=== PATIENT | female | born 1970 | race Caucasian/White ===

== ENCOUNTER 2017-02-20 05:53 | Emergency (ER) | payer BC ==
[2017-02-20 05:59] VITALS: BP 121/74
[2017-02-20] MEDS ORDERED: Ketorolac 30 MG/ML SDV IVPUSH ONE (06:24)
[2017-02-20] MEDS ORDERED: Cyclobenzaprine 10 MG Tab PO ONE (06:24)
[2017-02-20] MEDS ORDERED: Metoclopramide 10 MG/2 ML SDV IVPUSH ONE (06:27)
--- NOTE | 2017-02-20 06:43 | EDM.PDOC ---
ED HPI GENERAL MEDICAL PROBLEM - General Chief Complaint: Lower Extremity Injury/Pain Stated Complaint: HURT GROIN MUSCLE Time Seen by Provider: 02/20/17 06:00 Source of Information: Reports: Patient History Limitations: Reports: No Limitations - History of Present Illness INITIAL COMMENTS - FREE TEXT/NARRATIVE: Original documentation for this record lost with [email or web address] malfunction. Patient presented with c/o of severe right groin pain worsening since . denies any specific injury. Noted Thursday was moving frozen meat from palettes to freezer. Also hx of venous surgery due to phlebitis and malfunctioning valve in right groin. Pain worse with extension of leg and forward step. Denies swelling to leg, no numbness or tingling. Previous smoker, quit in 2009 Right Upper Leg Pain Score (Numeric/FACES): 10 - Related Data Allergies Allergy/AdvReac Type Severity Reaction Status Date / Time bupropion [From Wellbutrin] Allergy Hallucinati Verified 02/20/17 05:57 ons Home Meds: Home Meds Venlafaxine HCl [Venlafaxine ER] 300 mg PO DAILY 09/05/14 [History] Lisdexamfetamine [Vyvanse] 40 mg PO DAILY 09/24/16 [History] QUEtiapine [SEROquel] 25 mg PO DAILY 09/24/16 [History] Past Medical History - Past Health History Medical/Surgical History: Denies Medical/Surgical History HEENT History: Reports: None Cardiovascular History: Reports: None Respiratory History: Reports: None Gastrointestinal History: Reports: Other (See Below) Other Gastrointestinal History: rectal bleed Genitourinary History: Reports: None DATABASE SUPPORT History: Reports: None Musculoskeletal History: Reports: None Neurological History: Reports: None Psychiatric History: Reports: Depression Endocrine/Metabolic History: Reports: None Hematologic History: Reports: None Immunologic History: Reports: None Oncologic (Cancer) History: Reports: None Dermatologic History: Reports: None - Infectious Disease History Infectious Disease History: Reports: Chicken Pox - Past Surgical History Cardiovascular Surgical History: Reports: Other (See Below) Other Cardiovascular Surgeries/Procedures: VARICOSE VEIN SURGERY - RIGHT LEG Female Surgical History: Reports: Tubal Ligation Social & Family History - Tobacco Use Smoking Status *Q: Former Smoker Years of Tobacco use: 22 Used Tobacco, but Quit: Yes Month Tobacco Last Used: 2009 Second Hand Smoke Exposure: No - Caffeine Use Caffeine Use: Reports: Coffee - Alcohol Use Days Per Week of Alcohol Use: 0 - Recreational Drug Use Recreational Drug Use: No - Living Situation & Occupation Living situation: Reports: with Significant Other Occupation: Unemployed Review of Systems - Review of Systems Review Of Systems: ROS reveals no pertinent complaints other than HPI. ED EXAM, GENERAL - Physical Exam Exam: See Below Exam Limited By: No Limitations General Appearance: Alert, Moderate Distress Eye Exam: Bilateral Eye: EOMI Ears: Normal External Exam Nose: Normal Inspection Throat/Mouth: Normal Inspection. No: Normal Teeth Head: Atraumatic, Normocephalic Neck: Normal Inspection Respiratory/Chest: No Respiratory Distress, Lungs Clear, Normal Breath Sounds Cardiovascular: Normal Peripheral Pulses, Regular Rate, Rhythm, No Edema Peripheral Pulses: 1+: Posterior Tibial (R), 2+: Posterior Tibial (L) Extremities: Kimberlyn's Sign, Limited Range of Motion (pain to right groin with inimal movment. Tender to palpation, No noted lymphadenopathy, pain extending to mid anterior and medial thigh with movment.). No: Increased Warmth, Mottled , Pallor Neurological: Alert, Oriented, Normal Cognition Psychiatric: Normal Affect Skin Exam: Warm, Dry, Intact, Normal Color Course - Vital Signs Last Recorded V/S: Last Vital Signs Temp 98.5 F 02/20/17 05:58 Pulse 86 02/20/17 05:58 Resp 16 02/20/17 05:58 BP 121/74 02/20/17 05:58 Pulse Ox 100 02/20/17 05:58 - Orders/Labs/Meds Labs: Laboratory Tests 02/20/17 02/20/17 02/20/17 Range/Units 06:28 06:28 06:28 WBC 7.8 (5.0-10.0) 10^3/uL RBC 4.22 (4.2-5.4) 10^6/uL Hgb 11.4 L (12.0-16.0) g/dL Hct 36.4 L (37.0-47.0) % MCV 86.3 (80-100) fL MCH 27.0 (27.0-34.0) pg MCHC 31.3 L (33.0-35.0) g/dL Plt Count 254 (150-450) 10^3/uL Neut % (Auto) 76.3 H (42.2-75.2) % Lymph % (Auto) 11.7 L (20.5-50.1) % [place] % (Auto) 10.7 H (2-8) % Eos % (Auto) 1.0 (1.0-3.0) % Baso % (Auto) 0.3 (0.0-1.0) % D-Dimer, Quantitative < 100 (0-400) ng/mL Sodium 138 (135-145) mmol/L Potassium 4.4 (3.6-5.0) mmol/L Chloride 104 (101-111) mmol/L Carbon Dioxide 25.0 (21.0-31.0) mmol/L Anion Gap 13.4 BUN 21 H (7-18) mg/dL Creatinine 0.5 L (0.6-1.3) mg/dL Est Cr Clr Drug Dosing 136.31 mL/min Estimated GFR (MDRD) > 60 BUN/Creatinine Ratio 42.00 Glucose 81 (74-105) mg/dL Calcium 8.7 (8.4-10.2) mg/dl Total Bilirubin 0.5 (0.2-1.0) mg/dL AST 29 (10-42) IU/L ALT 20 (10-60) IU/L Alkaline Phosphatase 80 (42-121) IU/L Total Protein 6.9 (6.7-8.2) g/dl Albumin 3.6 (3.2-5.5) g/dl Globulin 3.3 Albumin/Globulin Ratio 1.09 Meds: Medications Discontinued Medications Generic Name Dose Route Start Last Admin Trade Name Freq PRN Reason Stop Dose Admin Cyclobenzaprine HCl 5 mg 02/20/17 06:24 02/20/17 06:38 Flexeril PO 02/20/17 06:25 5 mg ONETIME ONE Administration Ketorolac Tromethamine 30 mg 02/20/17 06:24 02/20/17 06:39 Toradol IVPUSH 02/20/17 06:25 30 mg ONETIME ONE Administration Metoclopramide HCl 10 mg 02/20/17 06:27 02/20/17 06:39 Reglan IVPUSH 02/20/17 06:28 10 mg ONETIME ONE Administration Departure - Departure Time of Disposition: 07:05 Disposition: Home, Self-Care 01 Condition: Undetermined Clinical Impression: Pulled muscle - Discharge Information Instructions: Muscle Strain, [id number] Forms: ED Department Discharge Additional Instructions: ibuprofen 600mg one every 6 hours as needed for pain #20 flexeril 10mg one half to one tablet every 8 hours as needed for muscle alternate ice and heat to area rest off work- through 02/23 clinic follow up on Thursday
[2017-02-20 07:02] LABS: CHLORIDE,CL 104 mmol/L (101-111); SODIUM,NA 138 mmol/L (135-145)
== END 2017-02-20 07:23 | disposition home or self-care (01) ==
LOC: DL.ED 05:53
DX: R10.31 Right lower quadrant pain (principal); M62.89 Other specified disorders of muscle; F32.9 Major depressive disorder, single episode, unspecified; Z98.51 Tubal ligation status; Z87.891 Personal history of nicotine dependence; Z79.899 Other long term (current) drug therapy; Z88.8 Allergy status to other drugs, medicaments and biological substances
CPT/HCPCS: 36415; 80053; 85025; 85379; 96372; 96374; 99283; A9270; J1885; J2765

== ENCOUNTER 2017-03-30 15:36 | Emergency (ER) | payer OTHER, BC ==
[2017-03-30 16:30] VITALS: BP 121/61
--- NOTE | 2017-03-30 17:02 | EDM.PDOC ---
ED HPI GENERAL MEDICAL PROBLEM - General Chief Complaint: Upper Extremity Injury/Pain Stated Complaint: POSSIBLE BROKEN FINGER, [id number] Time Seen by Provider: 03/30/17 16:55 Source of Information: Reports: Patient History Limitations: Reports: No Limitations - History of Present Illness INITIAL COMMENTS - FREE TEXT/NARRATIVE: This 46 yo female patient reports to the ED with pain in her right distal middle finger. The patient reports she injured her finger on Thursday (03/28/17) while [facility] The patient reports increased pain since the time of the incident. Onset Date: 03/28/17 Duration: Constant Location: Reports: Upper Extremity, Right (distal middle finger) Quality: Reports: Ache, Dull Severity: Moderate Improves with: Reports: None Worsens with: Reports: None Context: Reports: Trauma Associated Symptoms: Reports: No Other Symptoms Right 3-Middle finger Pain Score (Numeric/FACES): 8 - Related Data Allergies Allergy/AdvReac Type Severity Reaction Status Date / Time bupropion [From Wellbutrin] Allergy Hallucinati Verified 03/30/17 16:27 ons Home Meds: Home Meds Venlafaxine HCl [Venlafaxine ER] 300 mg PO DAILY 09/05/14 [History] Lisdexamfetamine [Vyvanse] 40 mg PO DAILY 09/24/16 [History] QUEtiapine [SEROquel] 25 mg PO DAILY PRN 09/24/16 [History] Past Medical History - Past Health History Medical/Surgical History: Denies Medical/Surgical History HEENT History: Reports: None Cardiovascular History: Reports: None Respiratory History: Reports: None Gastrointestinal History: Reports: Other (See Below) Other Gastrointestinal History: rectal bleed Genitourinary History: Reports: None 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 Musculoskeletal History: Reports: None Neurological History: Reports: None Psychiatric History: Reports: Depression Endocrine/Metabolic History: Reports: None Hematologic History: Reports: None Immunologic History: Reports: None Oncologic (Cancer) History: Reports: None Dermatologic History: Reports: None - Infectious Disease History Infectious Disease History: Reports: Chicken Pox - Past Surgical History Cardiovascular Surgical History: Reports: Other (See Below) Other Cardiovascular Surgeries/Procedures: VARICOSE VEIN SURGERY - RIGHT LEG Female Surgical History: Reports: Tubal Ligation Social & Family History - Family History Family Medical History: Noncontributory - Tobacco Use Smoking Status *Q: Former Smoker Years of Tobacco use: 22 Used Tobacco, but Quit: Yes Month Tobacco Last Used: 2009 Second Hand Smoke Exposure: No - Caffeine Use Caffeine Use: Reports: Coffee - Alcohol Use Days Per Week of Alcohol Use: 0 - Recreational Drug Use Recreational Drug Use: No - Living Situation & Occupation Living situation: Reports: with Significant Other Occupation: Unemployed Review of Systems - Review of Systems Review Of Systems: ROS reveals no pertinent complaints other than HPI. ED EXAM, GENERAL - Physical Exam Exam: See Below Exam Limited By: No Limitations General Appearance: Alert, WD/WN, Mild Distress Eye Exam: Bilateral Eye: EOMI, Normal Inspection, PERRL Ears: Normal External Exam, Normal Canal, Hearing Grossly Normal, Normal TMs Nose: Normal Inspection, Normal Mucosa, No Blood Throat/Mouth: Normal Inspection, Normal Lips, Normal Teeth, Normal Gums, Normal Oropharynx, Normal Voice, No Airway Compromise Head: Atraumatic, Normocephalic Neck: Normal Inspection, Supple, Non-Tender, Full Range of Motion Respiratory/Chest: No Respiratory Distress, Lungs Clear, Normal Breath Sounds, No Accessory Muscle Use, Chest Non-Tender Cardiovascular: Normal Peripheral Pulses, Regular Rate, Rhythm, No Edema, No Gallop, No JVD, No Murmur, No Rub GI/Abdominal: Normal Bowel Sounds, Soft, Non-Tender, No Organomegaly, No Distention, No Abnormal Bruit, No Mass (Female) Exam: Deferred Rectal (Female) Exam: Deferred Back Exam: Normal Inspection, Full Range of Motion, NT Extremities: No Pedal Edema, Normal Capillary Refill, Other (right distal finger tenderness and immobility) Neurological: Alert, Oriented, CN II-XII Intact, Normal Cognition, Normal Gait, Normal Reflexes Psychiatric: Normal Affect, Normal Mood Skin Exam: Warm, Dry, Intact, Normal Color, No Rash Lymphatic: No Adenopathy Course - Vital Signs Last Recorded V/S: Last Vital Signs Temp 36.8 C 03/30/17 16:29 Pulse 88 03/30/17 16:29 Resp 16 03/30/17 16:29 BP 121/61 03/30/17 16:29 Pulse Ox 100 03/30/17 16:29 Departure - Departure Time of Disposition: 17:06 Disposition: Home, Self-Care 01 Condition: Fair Clinical Impression: Contusion of right middle finger without damage to nail, initial encounter - Discharge Information Instructions: Hand Contusion, [id number] Forms: ED Department Discharge Care Plan Goals: The patient was advised of the examination and x-ray results during the visit. The patient was placed in a right distal middle finger splint. The patient was encouraged to continue to rest, ice and elevate the injury. The patient may take Tylenol or ibuprofen as directed for temporary symptom relief. If the patient has any additional symptoms or concerns, the patient should follow-up with her primary care facility or return to the emergency department.
--- NOTE | 2017-03-31 20:24 | PCM.SN ---
- Free Text/Narrative Note: Patient presented with [employer] work comp form to be filled out from DOS 02/20/17 with groin pain. Forms completed . See document.
== END 2017-03-30 17:18 | disposition home or self-care (01) ==
LOC: DL.ED 15:36
DX: S60.031A Contusion of right middle finger without damage to nail, initial encounter (principal); F32.9 Major depressive disorder, single episode, unspecified; Z98.51 Tubal ligation status; Z79.899 Other long term (current) drug therapy; Z88.8 Allergy status to other drugs, medicaments and biological substances; W23.1XXA Caught, crushed, jammed, or pinched between stationary objects, initial encounter
CPT/HCPCS: 73140-F7; 99284

== ENCOUNTER 2017-06-18 05:10 | Day surgery (SDC) | payer BC, OTHER ==
[~2017-06-18 05:10] MED LIST: Dextrose 5%-0.45% NaCl 1,000 ML IV SCH; Midazolam 1 MG/ML 2 ML SDV ONE; Sodium Chloride 0.9% 10 ML Syringe FLUSH PRN; fentaNYL 100 MCG/2 ML SDV ONE
[2017-06-18] MEDS ORDERED: fentaNYL 100 MCG/2 ML SDV IV ONE ×5 (05:11→06:40)
[2017-06-18] MEDS ORDERED: Midazolam 1 MG/ML 2 ML SDV IV ONE ×7 (05:11→06:36)
[2017-06-18] MEDS ORDERED: Dextrose 5%-0.45% NaCl 1,000 ML IV SCH (06:00)
[2017-06-18] MEDS ORDERED: Sodium Chloride 0.9% 10 ML Syringe FLUSH PRN (06:00)
[2017-06-18] MEDS ORDERED: Midazolam 1 MG/ML 2 ML SDV ONE (06:13)
[2017-06-18] MEDS ORDERED: fentaNYL 100 MCG/2 ML SDV ONE (06:13)
--- NOTE | 2017-06-18 08:02 | OR ---
DATE: 06/18/2017 PROCEDURES PERFORMED: Total colonoscopy, NBI, and multiple pinch biopsies. INSTRUMENT USED: CF-H180AL Olympus videocolonoscope. PREMEDICATIONS: Fentanyl 150 mcg intravenous and Versed 4 mg intravenous. Nasal O2 cannula. The procedure was done under pulse oximetry, BP recording, and phototypesetting equipment monitor. INDICATION: The patient with ulcerative proctitis. Colonoscopic examination is done for detection of any polypoid lesions and removal, assessment of proximal colon as to presence of colitis, endoscopic hemostasis therapy if needed. DESCRIPTION OF PROCEDURE: Initial rectal exam was unremarkable. Rigid anoscopy showed small internal hemorrhoids without bleeding from them. The colonoscope was passed with ease. Photographs were taken. NBI views were obtained of rectal mucosa showing contact bleeding, diffuse erythema, as well as ulcerations. The scope was passed with ease up to the ileocecal area. Photographs were taken of the normal-appearing cecum identified by appendiceal orifice and thin-lipped ileocecal folds. No bleeding was noted from any of the visualized areas at the commencement of the examination. No stricture. No vascular ectasia. No large isolated ulcerations seen. No polyp or tumor mass identified. Probing the proximal sides of folds and flexures, using adequate distention and clearing up the stool material, withdrawal of the scope was made. Multiple pinch biopsies were taken from the normal-appearing mucosa of the mid- transverse colon, mid-descending colon, and sigmoid. Tissues were also obtained from the rectal mucosa that was abnormal and sent for histopathology. No bleeding was noted from any of the visualized areas at the completion of examination. IMPRESSION: 1. Internal hemorrhoids. 2. Ulcerative proctitis. The patient tolerated the procedure well. [facility] /[id number] MTDD
[2017-06-18 10:24] VITALS: BP 102/65
== END 2017-06-18 08:54 | disposition home or self-care (01) ==
LOC: DL.ENDO 05:10
PROVIDERS: ATTEND Internal Medicine Gastroenterology
DX: K51.20 Ulcerative (chronic) proctitis without complications (principal); K64.8 Other hemorrhoids; F32.9 Major depressive disorder, single episode, unspecified; Z98.51 Tubal ligation status; Z88.8 Allergy status to other drugs, medicaments and biological substances; Z98.890 Other specified postprocedural states
CPT/HCPCS: 45380; J2250; J3010; J7042

== ENCOUNTER 2017-09-05 10:45 | Emergency (ER) | payer BC ==
[2017-09-05 12:41] VITALS: BP 103/41
[2017-09-05 14:07] LABS: ANION GAP 11.5; CHLORIDE,CL 102 mmol/L (101-111); SODIUM,NA 136 mmol/L (135-145)
--- NOTE | 2017-09-05 19:32 | EDM.PDOC ---
Scribed by Heidi Contreras 09/05/17 1410 for Isatu Barajas NP ED HPI GENERAL MEDICAL PROBLEM - General Chief Complaint: Respiratory Problem Stated Complaint: [id number] Pneumonia Time Seen by Provider: 09/05/17 11:55 Source of Information: Reports: Patient, RN, RN Notes Reviewed History Limitations: Reports: No Limitations - History of Present Illness INITIAL COMMENTS - FREE TEXT/NARRATIVE: Patient presents to ER with complaint of being sick 1-1/2 weeks. States she got better for a day, went to work and got sick again. Was seen in clinic in [place] on ThursdayAugust 23. Tamiflu given with positive influenza. She was seen at clinic a week later and told she could go back to work. She has had chills, fever unknown, sore throat, productive cough, congestion and body aches. She has had nonausea, vomiting, diarrhea, chest pain and shortness of breath. Location: Reports: Generalized Quality: Reports: Ache Severity: Moderate Improves with: Reports: None Worsens with: Reports: None Associated Symptoms: Reports: No Other Symptoms - Related Data Allergies Allergy/AdvReac Type Severity Reaction Status Date / Time bupropion [From Wellbutrin] Allergy Hallucinati Verified 09/05/17 11:24 ons Home Meds: Home Meds Venlafaxine HCl [Venlafaxine ER] 2 cap PO DAILY 09/05/14 [History] Lisdexamfetamine [Vyvanse] 40 mg PO DAILY 09/24/16 [History] QUEtiapine [SEROquel] 25 mg PO DAILY PRN 09/24/16 [History] Acetaminophen 2 tab PO ASDIRECTED PRN 06/17/17 [History] Past Medical History - Past Health History Medical/Surgical History: Denies Medical/Surgical History HEENT History: Reports: None, Other (See Below) Other HEENT History: ABSCESSED TOOTH PER HER REPORT 06/2017 Cardiovascular History: Reports: Other (See Below) Other Cardiovascular History: VARICOSE VEINS Respiratory History: Reports: None Gastrointestinal History: Reports: Other (See Below) Other Gastrointestinal History: rectal bleed Genitourinary History: Reports: None 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: Musculoskeletal History: Reports: Neck Pain, Chronic Neurological History: Reports: None Psychiatric History: Reports: Depression Endocrine/Metabolic History: Reports: None Hematologic History: Reports: None Immunologic History: Reports: None Oncologic (Cancer) History: Reports: None Dermatologic History: Reports: None - Infectious Disease History Infectious Disease History: Reports: Chicken Pox - Past Surgical History Head Surgeries/Procedures: Reports: None HEENT Surgical History: Reports: None Cardiovascular Surgical History: Reports: Varicose Other Cardiovascular Surgeries/Procedures: RIGHT LEG VARICOSE SURGERY Respiratory Surgical History: Reports: None GI Surgical History: Reports: Colonoscopy Female Surgical History: Reports: Tubal Ligation Other Female Surgeries/Procedures: pelvic lap Neurological Surgical History: Reports: None Musculoskeletal Surgical History: Reports: Other (See Below) Other Musculoskeletal Surgeries/Procedures:: vein stripping Oncologic Surgical History: Reports: None Social & Family History - Family History Family Medical History: Noncontributory - Tobacco Use Smoking Status *Q: Former Smoker Years of Tobacco use: 20 Packs/Tins Daily: 1 Used Tobacco, but Quit: Yes Month Tobacco Last Used: august Second Hand Smoke Exposure: No - Caffeine Use Caffeine Use: Reports: Coffee - Alcohol Use Days Per Week of Alcohol Use: 0 - Recreational Drug Use Recreational Drug Use: No Drug Use in Last 12 Months: No - Living Situation & Occupation Living situation: Reports: with Significant Other Occupation: Unemployed ED ROS GENERAL - Review of Systems Review Of Systems: ROS reveals no pertinent complaints other than HPI. ED EXAM, GENERAL - Physical Exam Exam: See Below Exam Limited By: No Limitations General Appearance: Other (tearful) Eye Exam: Bilateral Eye: Normal Inspection Ears: Normal External Exam, Normal Canal, Hearing Grossly Normal, Normal TMs Nose: Normal Inspection, Normal Mucosa, No Blood Throat/Mouth: Normal Inspection, Normal Lips, Normal Teeth, Normal Gums, Normal Oropharynx, Normal Voice, No Airway Compromise Head: Atraumatic, Normocephalic Neck: Normal Inspection, Supple, Non-Tender, Full Range of Motion Respiratory/Chest: No Respiratory Distress, Lungs Clear, Normal Breath Sounds, No Accessory Muscle Use, Chest Non-Tender Cardiovascular: Normal Peripheral Pulses, Regular Rate, Rhythm, No Edema, No Gallop, No JVD, No Murmur, No Rub GI/Abdominal: Normal Bowel Sounds, Soft, Non-Tender, No Organomegaly, No Distention, No Abnormal Bruit, No Mass (Female) Exam: Deferred Rectal (Female) Exam: Deferred Back Exam: Normal Inspection, Full Range of Motion, NT Extremities: Normal Inspection, Normal Range of Motion, Non-Tender, Normal Capillary Refill, No Pedal Edema Neurological: Alert, Oriented, CN II-XII Intact, Normal Cognition, Normal Gait, Normal Reflexes, No Motor/Sensory Deficits Psychiatric: Tearful Skin Exam: Warm, Dry, Intact, Normal Color, No Rash Lymphatic: No Adenopathy Course - Vital Signs Last Recorded V/S: Last Vital Signs Temp 99.0 F 09/05/17 12:40 Pulse 75 09/05/17 12:40 Resp 16 09/05/17 12:40 BP 103/41 L 09/05/17 12:40 Pulse Ox 100 09/05/17 12:40 - Orders/Labs/Meds Orders: Active Orders 24 hr Category Date Time Status CULTURE STREP A CONFIRMATION [] Stat Lab 09/05/17 13:28 Results STREP SCRN A RAPID W CULT CONF [] Stat Lab 09/05/17 13:28 Results Labs: Laboratory Tests 09/05/17 09/05/17 09/05/17 Range/Units 13:30 13:30 13:35 WBC 8.9 (5.0-10.0) 10^3/uL RBC 4.65 (4.2-5.4) 10^6/uL Hgb 12.2 (12.0-16.0) g/dL Hct 39.4 (37.0-47.0) % MCV 84.7 (80-100) fL MCH 26.2 L (27.0-34.0) pg MCHC 31.0 L (33.0-35.0) g/dL Plt Count 313 (150-450) 10^3/uL Neut % (Auto) 75.3 H (42.2-75.2) % Lymph % (Auto) 12.9 L (20.5-50.1) % [place] % (Auto) 10.4 H (2-8) % Eos % (Auto) 1.0 (1.0-3.0) % Baso % (Auto) 0.4 (0.0-1.0) % Sodium (135-145) mmol/L Potassium (3.6-5.0) mmol/L Chloride (101-111) mmol/L Carbon Dioxide (21.0-31.0) mmol/L Anion Gap BUN (7-18) mg/dL Creatinine (0.6-1.3) mg/dL Est Cr Clr Drug Dosing mL/min Estimated GFR (MDRD) BUN/Creatinine Ratio Glucose (74-105) mg/dL Calcium (8.4-10.2) mg/dl Total Bilirubin (0.2-1.0) mg/dL AST (10-42) IU/L ALT (10-60) IU/L Alkaline Phosphatase (42-121) IU/L Total Protein (6.7-8.2) g/dl Albumin (3.2-5.5) g/dl Globulin Albumin/Globulin Ratio Urine Color Yellow (YELLOW) Urine Appearance Clear (CLEAR) Urine pH 7.0 (5.0-9.0) Ur Specific Success 1.025 (1.005-1.030) Urine Protein Negative (NEGATIVE) Urine Glucose (UA) Negative (NEGATIVE) Urine Ketones Negative (NEGATIVE) Urine Occult Blood Negative (NEGATIVE) Urine Nitrite Negative (NEGATIVE) Urine Bilirubin Negative (NEGATIVE) Urine Urobilinogen 0.2 (0.2-1.0) mg/dL Ur Leukocyte Esterase Trace H (NEGATIVE) Urine RBC 0-5 /HPF Urine WBC 0-5 (0-5/HPF) /HPF Ur Epithelial Cells Moderate H /HPF Urine Bacteria Moderate H (0-FEW/HPF) /HPF Urine Mucus Few H /LPF Urine Opiates Screen Negative (NEGATIVE) Ur Oxycodone Screen Negative (NEGATIVE) Urine Methadone Screen Negative (NEGATIVE) Ur Barbiturates Screen Negative (NEGATIVE) U Tricyclic Antidepress Negative (NEGATIVE) Ur Phencyclidine Scrn Negative (NEGATIVE) Ur Amphetamine Screen Negative (NEGATIVE) U Methamphetamines Scrn Negative (NEGATIVE) Urine MDMA Screen Negative (NEGATIVE) U Benzodiazepines Scrn Negative (NEGATIVE) Urine Cocaine Screen Negative (NEGATIVE) U Marijuana (THC) Screen Negative (NEGATIVE) Ethyl Alcohol mg/dL 09/05/17 Range/Units 13:35 WBC (5.0-10.0) 10^3/uL RBC (4.2-5.4) 10^6/uL Hgb (12.0-16.0) g/dL Hct (37.0-47.0) % MCV (80-100) fL MCH (27.0-34.0) pg MCHC (33.0-35.0) g/dL Plt Count (150-450) 10^3/uL Neut % (Auto) (42.2-75.2) % Lymph % (Auto) (20.5-50.1) % [place] % (Auto) (2-8) % Eos % (Auto) (1.0-3.0) % Baso % (Auto) (0.0-1.0) % Sodium 136 (135-145) mmol/L Potassium 4.5 (3.6-5.0) mmol/L Chloride 102 (101-111) mmol/L Carbon Dioxide 27.0 (21.0-31.0) mmol/L Anion Gap 11.5 BUN 15 (7-18) mg/dL Creatinine 0.5 L (0.6-1.3) mg/dL Est Cr Clr Drug Dosing 132.35 mL/min Estimated GFR (MDRD) > 60 BUN/Creatinine Ratio 30.00 Glucose 94 (74-105) mg/dL Calcium 8.6 (8.4-10.2) mg/dl Total Bilirubin 0.4 (0.2-1.0) mg/dL AST 26 (10-42) IU/L ALT 20 (10-60) IU/L Alkaline Phosphatase 94 (42-121) IU/L Total Protein 7.0 (6.7-8.2) g/dl Albumin 3.4 (3.2-5.5) g/dl Globulin 3.6 Albumin/Globulin Ratio 0.94 Urine Color (YELLOW) Urine Appearance (CLEAR) Urine pH (5.0-9.0) Ur Specific Success (1.005-1.030) Urine Protein (NEGATIVE) Urine Glucose (UA) (NEGATIVE) Urine Ketones (NEGATIVE) Urine Occult Blood (NEGATIVE) Urine Nitrite (NEGATIVE) Urine Bilirubin (NEGATIVE) Urine Urobilinogen (0.2-1.0) mg/dL Ur Leukocyte Esterase (NEGATIVE) Urine RBC /HPF Urine WBC (0-5/HPF) /HPF Ur Epithelial Cells /HPF Urine Bacteria (0-FEW/HPF) /HPF Urine Mucus /LPF Urine Opiates Screen (NEGATIVE) Ur Oxycodone Screen (NEGATIVE) Urine Methadone Screen (NEGATIVE) Ur Barbiturates Screen (NEGATIVE) U Tricyclic Antidepress (NEGATIVE) Ur Phencyclidine Scrn (NEGATIVE) Ur Amphetamine Screen (NEGATIVE) U Methamphetamines Scrn (NEGATIVE) Urine MDMA Screen (NEGATIVE) U Benzodiazepines Scrn (NEGATIVE) Urine Cocaine Screen (NEGATIVE) U Marijuana (THC) Screen (NEGATIVE) Ethyl Alcohol < 5 mg/dL Influenza A and B: Negative. Rapid strep: Negative. Departure - Departure Time of Disposition: 14:10 Disposition: Home, Self-Care 01 Clinical Impression: Upper respiratory infection Qualifiers: URI type: unspecified URI Qualified Code(s): J06.9 - Acute upper respiratory infection, unspecified - Discharge Information Instructions: Upper Respiratory Infection, Adult, [id number] Forms: ED Department Discharge Additional Instructions: RX: Augmentin Drink plenty of fluids Rest Follow up with your primary care facility next week OTC Mucinex or like generic, as directed OTC Decongestant as directed OTC Flonase as directed - My Orders Last 24 Hours: My Active Orders 09/05/17 13:28 CULTURE STREP A CONFIRMATION [RM] Stat STREP SCRN A RAPID W CULT CONF [RM] Stat - Assessment/Plan Last 24 Hours: My Active Orders 09/05/17 13:28 CULTURE STREP A CONFIRMATION [RM] Stat STREP SCRN A RAPID W CULT CONF [RM] Stat I have read and agree with the documentation that has been completed regarding this visit. By signing this record, I attest that the documentation was completed in my physical presence and is an accurate record of the encounter.
== END 2017-09-05 14:19 | disposition home or self-care (01) ==
LOC: DL.ED 10:45
DX: J06.9 Acute upper respiratory infection, unspecified (principal); Z88.8 Allergy status to other drugs, medicaments and biological substances; Z79.899 Other long term (current) drug therapy; Z87.891 Personal history of nicotine dependence
CPT/HCPCS: 36415; 80053; 80305; 81001; 85025; 87081; 87430; 87804; 99284; G0480

== ENCOUNTER 2019-12-16 14:23 | Emergency (ER) | payer SELFPAY ==
--- NOTE | 2019-12-16 14:37 | EDM.PDOC ---
ED HPI GENERAL MEDICAL PROBLEM - General Chief Complaint: Lower Extremity Injury/Pain Stated Complaint: BAD HIP PAIN, UNABLE TO LIFT OR MOVE FORWARD Time Seen by Provider: 12/16/19 14:33 Source of Information: Reports: Patient, Old Records, RN, RN Notes Reviewed History Limitations: Reports: No Limitations - History of Present Illness INITIAL COMMENTS - FREE TEXT/NARRATIVE: Pt presents to ER by POV with c/o right hip pain x2 days. She denies fall or any known injury. She did some lifting the day before the onset of the pain. Pt state Rt hip pain, but points to indicate the area of pain is located at the right low back and Rt S.I. joint area. Denies radiating pain, saddle area numbness, loss of bowel or bladder control, or motor weakness. She has had similar pain in the past, but never sought medical care for it. Pt rates the pain 8/10. The pain is better at rest when she is not moving. The pain is aggravated by movement of the right leg. She has not been to clinic because she does not have medical insurance and states she cannot afford a clinic bill. She is under the assumption that a non-emergent visit to the ED is cheaper than a clinic visit. Onset: Gradual Duration: Day(s): (2) Location: Reports: Back Quality: Reports: Ache Severity: Severe Improves with: Reports: Rest Worsens with: Reports: Movement Associated Symptoms: Reports: No Other Symptoms Right Hip Pain Score (Numeric/FACES): 8 - Related Data Allergies Allergy/AdvReac Type Severity Reaction Status Date / Time bupropion [From Wellbutrin] Allergy Hallucinati Verified 12/16/19 14:33 ons Home Meds: Home Meds Venlafaxine HCl [Venlafaxine ER] 300 mg PO DAILY 09/05/14 [History] Acetaminophen 2 tab PO ASDIRECTED PRN 06/17/17 [History] Cyclobenzaprine [Flexeril] 5 mg PO TID PRN 12/16/19 [History] traZODone 150 mg PO BEDTIME 12/16/19 [History] Past Medical History - Past Health History Medical/Surgical History: Denies Medical/Surgical History HEENT History: Reports: None, Other (See Below) (Missing multiple teeth) Other HEENT History: ABSCESSED TOOTH PER HER REPORT 06/2017 Cardiovascular History: Reports: Other (See Below) Other Cardiovascular History: VARICOSE VEINS Respiratory History: Reports: None Gastrointestinal History: Reports: Other (See Below) Other Gastrointestinal History: rectal bleed. obstipation Genitourinary History: Reports: None [employer] History: Reports: Musculoskeletal History: Reports: Neck Pain, Chronic Neurological History: Reports: None Psychiatric History: Reports: Depression Endocrine/Metabolic History: Reports: None Hematologic History: Reports: None Immunologic History: Reports: None Oncologic (Cancer) History: Reports: None Dermatologic History: Reports: None - Infectious Disease History Infectious Disease History: Reports: Chicken Pox - Past Surgical History Head Surgeries/Procedures: Reports: None HEENT Surgical History: Reports: None Cardiovascular Surgical History: Reports: Varicose Other Cardiovascular Surgeries/Procedures: RIGHT LEG VARICOSE SURGERY Respiratory Surgical History: Reports: None GI Surgical History: Reports: Colonoscopy Female Surgical History: Reports: Tubal Ligation Other Female Surgeries/Procedures: pelvic lap Neurological Surgical History: Reports: None Musculoskeletal Surgical History: Reports: Other (See Below) Other Musculoskeletal Surgeries/Procedures:: vein stripping Oncologic Surgical History: Reports: None Social & Family History - Family History Family Medical History: Noncontributory - Caffeine Use Caffeine Use: Reports: Coffee - Living Situation & Occupation Living situation: Reports: with Significant Other Occupation: Unemployed Review of Systems - Review of Systems Review Of Systems: Comprehensive ROS is negative, except as noted in HPI. ED EXAM, GENERAL - Physical Exam Exam: See Below Exam Limited By: No Limitations General Appearance: Alert, WD/WN, No Apparent Distress Head: Atraumatic, Normocephalic Neck: Normal Inspection, Non-Tender, Full Range of Motion Respiratory/Chest: No Respiratory Distress Cardiovascular: Normal Peripheral Pulses GI/Abdominal: Normal Bowel Sounds, Soft, Non-Tender, No Distention. No: Distended, Guarding, Rigid Back Exam: Decreased Range of Motion (L/S jct.), Muscle Spasm (Rt lower lumbar) , Paraspinal Tenderness, Other (Tender at Rt SI joint area). No: CVA Tenderness (L), CVA Tenderness (R), Vertebral Tenderness Extremities: Non-Tender, No Pedal Edema, Normal Capillary Refill, Limited Range of Motion (Rt hip due to increased pain in Rt SI joint area). No: Joint Swelling, Kimberlyn's Sign, Leg Pain, Increased Warmth, Mottled, Pallor, Redness Neurological: Alert, Oriented, Normal Cognition, No Motor/Sensory Deficits Psychiatric: Normal Mood Skin Exam: Warm, Dry, Intact, Normal Color, No Rash Course - Vital Signs Last Recorded V/S: Last Vital Signs Temp 97.4 F 12/16/19 14:29 Pulse 86 12/16/19 14:29 Resp 18 12/16/19 14:29 BP 132/74 12/16/19 14:29 Pulse Ox 98 12/16/19 14:29 - Orders/Labs/Meds Orders: Active Orders 24 hr Category Date Time Status Lumbar Spine 2 or 3V [CR] Urgent Exams 12/16/19 14:44 Ordered Meds: Medications Discontinued Medications Generic Name Dose Route Start Last Admin Trade Name Freq PRN Reason Stop Dose Admin Dexamethasone 4 mg 12/16/19 15:05 Dexamethasone PO 12/16/19 15:06 ONETIME ONE Lidocaine HCl 15 gm 12/16/19 15:06 Lidocaine 5% TOP 12/16/19 15:07 ONETIME ONE Orphenadrine Citrate 60 mg 12/16/19 15:07 Norflex IM 12/16/19 15:08 ONETIME ONE - Radiology Interpretation Free Text/Narrative:: XR L-spine: no acute fractures, DDD L5/S1, S1 spina bifida occulta, see Rad. report. Departure - Departure Time of Disposition: 15:10 Disposition: Home, Self-Care 01 Condition: Good Clinical Impression: Inflammation of right sacroiliac joint, Musculoskeletal back pain, Degenerative lumbar disc - Discharge Information *PRESCRIPTION DRUG MONITORING PROGRAM REVIEWED*: Not Applicable *COPY OF PRESCRIPTION DRUG MONITORING REPORT IN PATIENT DELFIN: Not Applicable Instructions: Sacroiliac Joint Dysfunction, Musculoskeletal Pain, Degenerative Disk Disease Forms: ED Department Discharge Additional Instructions: Rx: Orphenadrine 100mg *Do not drive while under the influence of this medication. Rx: Dexamethasone 4mg Light activity as tolerated. Follow up in clinic if not improving in 1 week. Sepsis Event Note - Focused Exam Vital Signs: Vital Signs Temp Pulse Resp BP Pulse Ox 12/16/19 14:29 97.4 F 86 18 132/74 98 Date Exam was Performed: 12/16/19 Time Exam was Performed: 15:09 - My Orders Last 24 Hours: My Active Orders 12/16/19 14:44 Lumbar Spine 2 or 3V [CR] Urgent - Assessment/Plan Last 24 Hours: My Active Orders 12/16/19 14:44 Lumbar Spine 2 or 3V [CR] Urgent
[2019-12-16 14:43] VITALS: BP 132/74; PULSE 86
[2019-12-16] MEDS ORDERED: Dexamethasone 4 MG Tab PO ONE (15:05)
[2019-12-16] MEDS ORDERED: Lidocaine 5% Oint 35.44 GM Tube TOP ONE (15:06)
[2019-12-16] MEDS ORDERED: Dexamethasone 2 MG Tab ONE (15:10)
--- NOTE | 2019-12-16 15:11 | CR ---
EXAMINATION: Lumbar Spine 2 or 3V SEX: Female AGE: 49 years CLINICAL HISTORY: 49-year-old female with low back pain, particularly on the right with "radiation down lower extremity". Interpretation: Abnormal. Mild anterolisthesis L3 vertebral body with associated intervertebral disc space narrowing, endplate sclerosis and hypertrophic marginal spondylosis. Note: There is also abnormal intervertebral disc space narrowing at the lowest L5-S1 level again with endplate sclerosis. No sign of pathologic skeletal lesion or lumbar fracture. Symmetric spacing normal-appearing SI and hip joints. CONCLUSION: Multilevel DISC DISEASE mid and lower lumbar spine (particularly severe L3-4 level).
== END 2019-12-16 15:33 | disposition home or self-care (01) ==
LOC: DL.ED 14:23
DX: M46.1 Sacroiliitis, not elsewhere classified (principal); M51.36 Other intervertebral disc degeneration, lumbar region; F32.9 Major depressive disorder, single episode, unspecified; Z79.899 Other long term (current) drug therapy; Z88.8 Allergy status to other drugs, medicaments and biological substances
CPT/HCPCS: 72100; 96372; 99283; A9270; J2360; J8540